=== PATIENT | female | born 1945 | race Caucasian/White ===

== ENCOUNTER → 2016-06-04 | Outpatient (CLI) | payer MEDICARE ==
[~2016-06-04] MED LIST: ALDACTONE 50MG50 MG PO; B COMPLEX1 TA1 PO; BACTRIM DS 8001 TA1 PO; BISOPROLOL 5MG T5 MG PO; FISH OIL1000 MG PO; LEVOTHYROXIN0.075 M2 PO; METFORMIN1000 MG PO; PRAVASTATIN SOD80 MG PO; UTIRA-C TABLET1 TAB PO; ZOFRAN4 MG PO
--- NOTE | 2016-06-04 19:40 | RADIOLOGY REPORT PS360 ---
FEMUR-RT-2 VIEWS ORDERING PHYSICIAN : Raj Rocha MD PATIENT AGE: 71 years GENDER: Female INDICATION: PALP AREA X 3 WEEKS MID INNER THIGH TECHNIQUE: AP lateral view right femur COMPARISON: Ultrasound from today FINDINGS Visualized Osseous structures intact. The right femur intact. No cortical thickening. No abnormal calcification at Understand is a focal area of soft tissue density seen on ultrasound at the medial aspect of the thigh. Vague ovoid soft tissue density here measuring 4.4 seem in length x 2 cm wide is noted but there is no associated calcification as was questioned on ultrasound.. This vague ovoid soft tissue density area is merely 5-6 mm deep to the skin and certainly not related to bone. The fat planes to this region do not appear to be disrupted on current AP s projection. IMPRESSION: Ovoid soft tissue density medial aspect mid thigh. This resides just slightly beneath the skin and corresponds to area seen on today's ultrasound no calcification here Underlying bone appears intact. And unremarkable
--- NOTE | 2016-06-04 19:50 | RADIOLOGY REPORT PS360 ---
US EXTREMITIES RT LIMITED Ultrasound right thigh medial aspect ORDERING PHYSICIAN : Raj Rocha MD PATIENT AGE: 71 years GENDER: Female INDICATION: SOFT TISSUE MASS Palpable area at the inner aspect mid right thigh Soft tissue mass 3 weeks. TECHNIQUE: Ultrasound right thigh. COMPARISON: FINDINGS The palpable area at the mid right thigh is imaged with ultrasound. There was an usual echogenic anterior margin associated with unusual degree of shadowing from this anterior anterior wall.. I suspected from this ultrasound appearance there may be a calcified anterior wall such as might be seen with developing myositis ossificans, but subsequent radiograph of this area show no appreciable calcification only of vague ovoid soft tissue density slightly beneath the scan. On this ultrasound this area appears to reside deep to the fat plane at 1.5 cm deep to the skin surface. It appears to be deeper on ultrasound than it appeared on plain film. This area overall measures up to 3.2 cm in length 2 cm wide. Difficult to define its posterior aspect on ultrasound but at least 2 cm AP. Nonspecific focus. With this intense shadowing on ultrasound I believe it warrants further investigation. An MRI or CT recommended to further evaluate. These are be most helpful if there is concern regarding a muscle injury or trauma that would benefit from overview evaluation. If however if it is showing progressive enlargement clinically, then we could proceed ultrasound-guided biopsy for histologic diagnosis. (However biopsy of myositis ossificans can be confusing misleading picture for the pathologist and thus it would be best to exclude this diagnosis before considering biopsy) Thus On final consideration I would suggest first performing a CT 5 to exclude myositis ossificans if there has been trauma here. CT.. .. IMPRESSION There is a 3 cm x 2 cm x 2 cm hypoechoic mass medial aspect right thigh which corresponds to the palpable area. Unusually echogenic anterior margin with unusual shadowing from such. \ . Suggest CT of the thigh as next up to further evaluate.
== END ==
LOC: RAD 13:45
DX: M79.9 Soft tissue disorder, unspecified (principal)

== ENCOUNTER → 2016-06-20 | Outpatient (CLI) | payer MEDICARE ==
[2016-06-20 13:48] LABS: HEMOGLOBIN 15.3 g/dL (12.2-16.2); LYMPH % 20.3 % (10-50.0)
[2016-06-20 14:40] LABS: BUN 21 mg/dL (7-18); GFR (ESTIMATED) 44 ML/MIN (59-)
== END ==
LOC: LAB 13:31
PROVIDERS: Surgery
DX: M79.604 Pain in right leg (principal); M79.651 Pain in right thigh

== ENCOUNTER → 2016-12-28 | Outpatient (CLI) | payer MEDICARE ==
[2016-12-28 09:49] LABS: LYMPH % 25.8 % (10-50.0)
[2016-12-28 11:46] LABS: BUN 19 mg/dL (7-18); GFR (ESTIMATED) 37 ML/MIN (59-)
--- NOTE | 2016-12-28 14:49 | RADIOLOGY REPORT PS360 ---
HAND-RT 3 VIEWS HISTORY: Right hand pain ARTHRITIS ORDERING PHYSICIAN: Raj Rocha MD PATIENT AGE: 71 years COMPARISON: None FINDINGS: There are severe osteoarthritic changes of the PIP joint of the fourth finger with some overlying soft tissue swelling and prominent bony spur.. Mild osteoarthritic changes are present at the first interphalangeal joint and the DIP of the second digit and third. No fracture, dislocation, or destructive process. IMPRESSION: Osteoarthritis most severe at the PIP joint of the fourth finger
--- NOTE | 2016-12-28 15:07 | RADIOLOGY REPORT PS360 ---
HAND-LT-3 VIEWS HISTORY: Left hand pain ARTHRITIS, left hand pain ORDERING PHYSICIAN: Raj Rocha MD PATIENT AGE: 71 years COMPARISON: None FINDINGS: Mild osteoarthritic changes are present at the interphalangeal joint of the long and the DIP of the second digit and the PIP of the fourth digit. There is some minimal periarticular calcification at the PIP of the fourth and fifth digit. There is some minimal ulnar deviation of the neural phalanx of the fourth finger. No acute fracture is evident. A lytic lesion involves the lunate along its lateral margin measuring approximate 7 mm. This has a somewhat aggressive appearance. Wrists films suggested initially. There are mild osteoarthritic changes of the scaphotrapezium joint. IMPRESSION: 1. 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 2. Lytic lesion of the lunate. Initially, recommend wrist films. Further workup with CT or MRI and bone scan may also be required
--- NOTE | 2016-12-29 14:22 | RADIOLOGY REPORT PS360 ---
MRI-UP EXT ANY JNT W/O-RT HISTORY: Right shoulder pain, injury with pain, limited range of motion RIGHT SHOULDER PAIN ORDERING PHYSICIAN: Raj Rocha MD PATIENT AGE: 71 years COMPARISON: None TECHNIQUE: Standard multiplanar multiecho sequences are performed without contrast. FINDINGS: There is complete tear of the supraspinatus tendon with retraction of the musculotendinous fibers. The infraspinatus tendon does appear to be intact. The teres minor tendon appears to be intact. There is thickening of the subscapularis tendon with increased T2 signal distally consistent with tendinopathy/tendinosis. A partial tear cannot be excluded distally. Fluid is present within the shoulder joint and fluid is present in the subcoracoid region. There is some cortical irregularity of the greater tuberosity of the humerus. No obvious labral tear. Fluid is present within bicipital tendon sheath. Bicipital tendon is somewhat displaced medially along the superior metal margin out of the bicipital groove. No fracture or dislocation apparent. IMPRESSION: 1. Complete tear of the supraspinatus tendon with retraction of the musculotendinous fibers. 2. Tendinopathy/tendinosis of the subscapularis tendon with possible incomplete tear distally 3. Moderate shoulder joint effusion. There is mild superior subluxation of the humeral head. Subcoracoid bursitis. 4. Long head of the biceps tendon is displaced medially along its superior course out of the bicipital groove
== END ==
LOC: RAD 08:39 → LAB 08:39 → RAD 08:45
PROVIDERS: Internal Medicine Adolescent Medicine
DX: M25.511 Pain in right shoulder (principal); M19.90 Unspecified osteoarthritis, unspecified site